=== PATIENT | female | born 1975 | race Caucasian/White ===

== ENCOUNTER 2018-03-07 11:33 | Outpatient (REF) | payer OTHER, SELFPAY ==
[2018-03-07 21:25] LABS: HGB 13.4 g/dL (12.0-15.5); Mean Corp. HGB Concentration 33.5 g/dL (32.0-36.0); Mean Corpuscular Hemoglobin 30.4 pg (27.0-33.0); Mean Corpuscular Volume 90.7 fL (80-95); Mean Platelet Volume 10.3 fL (8.0-11.0); Platelet Count 327 x1000/uL (130-400); RBC 4.41 m/cumm (4.00-5.20); RBC Distribution Width 12.6 % (11.7-14.6); White Blood Cell Count 4.52 k/cumm (4.4-10.8)
[2018-03-07 21:45] LABS: Cholesterol 292 mg/dL (50-200); HDL Cholesterol 49 mg/dL (40-60); LDL CHOLESTEROL 218 mg/dL (<100); TSH 3.51 uIU/mL (0.358-3.74); Triglyceride 131 mg/dL (30-150)
[2018-03-07 22:03] LABS: Hemoglobin A1C 5.4 % (4.5-6.2)
== END 2018-03-07 11:53 ==
LOC: NCHCN 11:33
PROVIDERS: PCP Nurse Practitioner Family; Visit Provider Nurse Practitioner Family
DX: O16.9 Unspecified maternal hypertension, unspecified trimester (principal); E03.9 Hypothyroidism, unspecified; E78.5 Hyperlipidemia, unspecified; R53.83 Other fatigue; Z13.1 Encounter for screening for diabetes mellitus
CPT/HCPCS: 80061; 83721; 85027; 83036; 84443

== ENCOUNTER 2019-03-05 13:05 | Outpatient (REF) | payer OTHER, SELFPAY ==
[2019-03-05 21:10] LABS: HCT 38.2 % (36.0-46.0); HGB 12.7 g/dL (12.0-15.5); Mean Corp. HGB Concentration 33.2 g/dL (32.0-36.0); Mean Corpuscular Hemoglobin 29.8 pg (27.0-33.0); Mean Corpuscular Volume 89.7 fL (80-95); Mean Platelet Volume 10.2 fL (8.0-11.0); Platelet Count 350 x1000/uL (130-400); RBC 4.26 m/cumm (4.00-5.20); RBC Distribution Width 12.5 % (11.7-14.6); White Blood Cell Count 7.42 k/cumm (4.4-10.8)
[2019-03-05 21:52] LABS: ALT 23 U/L (14-59); AST 15 U/L (15-37); Alkaline Phosphatase 54 U/L (46-116); Anion Gap 10.3 mmol/L (3-11); BUN 11 mg/dL (7-18); Bilirubin, Total 0.4 mg/dL (0.2-1.0); CO2 25.7 mmol/L (21.0-32.0); CREATININE 0.75 mg/dL (0.55-1.02); Calcium 8.5 mg/dL (8.5-10.1); Calculated LDL 194 mg/dL; Chloride 103 mmol/L (98-107); Cholesterol 257 mg/dL (50-200); Glucose 82 mg/dL (70-100); HDL Cholesterol 47 mg/dL (40-60); Potassium 3.9 mmol/L (3.5-5.1); Sodium 139 mmol/L (136-145); TSH 3.03 uIU/mL (0.36-3.74); Triglyceride 82 mg/dL (30-150); Vitamin B12 290 pg/mL (193-986)
== END 2019-03-05 13:25 ==
LOC: NCHCN 13:05
PROVIDERS: PCP Nurse Practitioner Family; Visit Provider Nurse Practitioner Family
DX: R53.83 Other fatigue (principal); E78.5 Hyperlipidemia, unspecified; R63.5 Abnormal weight gain; R00.2 Palpitations; I83.93 Asymptomatic varicose veins of bilateral lower extremities
CPT/HCPCS: 80053; 80061; 85027; 82607; 84443

== ENCOUNTER 2019-12-24 17:44 | Outpatient (REF) | payer OTHER, SELFPAY ==
[2019-12-24 20:53] LABS: Abs Immature Grans 0.02 10^3/uL (0.0-0.06); Absolute Basophil Count 0.05 10^3/uL (0.0-0.2); Absolute Eosinophil Count 0.17 10^3/uL (0.0-0.7); Absolute Lymphocyte Count 1.77 10^3/uL (1.2-3.4); Absolute Monocyte Count 0.35 10^3/uL (0.1-0.8); Absolute Neutrophil Count 3.49 10^3/uL (1.2-6.7); Basophils % 0.9; Eosinophils % 2.9; Immature Grans % 0.3; Lymphocytes % 30.3; MCH 30.7 pg (27.0-33.0); MCHC 33.3 % (32.0-36.0); MCV 92.1 fL (80-95); MPV 10.5 fL (8.0-11.0); Neutrophils % 59.6; Nucleated RBC 0 %; Platelet Count 316 10^3/uL (130-400); RBC 4.56 10^6/uL (3.93-5.22); RDW-SD 40.3 fL; WBC 5.85 10^3/uL (4.4-10.8)
[2019-12-24 21:32] LABS: ALT 30 U/L (14-59); AST 26 U/L (15-37); Alkaline Phosphatase 59 U/L (46-116); Anion Gap 12.1 mmol/L (3-11); BUN 12 mg/dL (7-18); Bilirubin, Total 0.4 mg/dL (0.2-1.0); CO2 23.9 mmol/L (21.0-32.0); Calcium 8.9 mg/dL (8.5-10.1); Calculated LDL 174 mg/dL (<100); Chloride 104 mmol/L (98-107); Cholesterol 239 mg/dL (<200); Glucose 88 mg/dL (74-106); HDL Cholesterol 51 mg/dL (40-60); Potassium 4.2 mmol/L (3.5-5.1); Sodium 140 mmol/L (136-145); TSH 2.15 uIU/mL (0.36-3.74); Total Protein 7.2 g/dL (6.4-8.2); Triglyceride 74 mg/dL (<150)
== END 2019-12-24 18:04 ==
LOC: NCHCN 17:44
PROVIDERS: PCP Nurse Practitioner Family; Visit Provider Internal Medicine
DX: R63.5 Abnormal weight gain (principal); E78.5 Hyperlipidemia, unspecified; L29.9 Pruritus, unspecified
CPT/HCPCS: 80053; 80061; 84443; 85025

== ENCOUNTER 2020-02-25 16:51 | Outpatient (REF) | payer OTHER, SELFPAY ==
[2020-02-29 03:47] LABS: Patient Race White; SARS-CoV-2 RNA Undetected (Undetected); SARS-CoV-2 Specimen Source Nasal
== END 2020-02-25 17:11 ==
LOC: NCHCN 16:51
PROVIDERS: PCP Nurse Practitioner Family; Visit Provider Registered Nurse
DX: R05 Cough (principal)
CPT/HCPCS: U0003

== ENCOUNTER 2020-03-22 22:10 | Outpatient (REF) | payer OTHER, SELFPAY ==
[2020-03-26 01:03] LABS: SARS-CoV-2 RNA Undetected (Undetected); SARS-CoV-2 Specimen Source Nasal
== END 2020-03-22 22:30 ==
LOC: NCHCN 22:10
PROVIDERS: PCP Nurse Practitioner Family; Visit Provider Nurse Practitioner Family
DX: R05 Cough (principal)
CPT/HCPCS: U0003

== ENCOUNTER 2020-05-11 23:09 | Outpatient (REF) | payer OTHER, SELFPAY ==
[2020-05-11 22:06] LABS: Abs Immature Grans 0.01 10^3/uL (0.0-0.06); Absolute Basophil Count 0.04 10^3/uL (0.0-0.2); Absolute Eosinophil Count 0.09 10^3/uL (0.0-0.7); Absolute Lymphocyte Count 2.07 10^3/uL (1.2-3.4); Absolute Monocyte Count 0.39 10^3/uL (0.1-0.8); Basophils % 0.7; Eosinophils % 1.5; HCT 38.1 % (36.0-46.0); HGB 12.8 g/dL (11.2-15.7); Immature Grans % 0.2; Lymphocytes % 35.1; MCHC 33.6 % (32.0-36.0); MCV 92.3 fL (80-95); MPV 10.2 fL (8.0-11.0); Monocytes % 6.6; Neutrophils % 55.9; Nucleated RBC 0 %; Platelet Count 294 10^3/uL (130-400); RBC 4.13 10^6/uL (3.93-5.22); RDW 11.8 % (11.7-14.6)
[2020-05-11 22:39] LABS: ALT 29 U/L (14-59); AST 16 U/L (15-37); Albumin 4.1 g/dL (3.4-5.0); Alkaline Phosphatase 55 U/L (46-116); Anion Gap 8.4 mmol/L (3-11); BUN 12 mg/dL (7-18); Bilirubin, Total 0.3 mg/dL (0.2-1.0); CO2 27.6 mmol/L (21.0-32.0); CREATININE 0.83 mg/dL (0.55-1.02); Calcium 8.6 mg/dL (8.5-10.1); Chloride 102 mmol/L (98-107); Glucose 86 mg/dL (74-106); Potassium 4.5 mmol/L (3.5-5.1); Sodium 138 mmol/L (136-145); Total Protein 6.9 g/dL (6.4-8.2)
[2020-05-12 04:57] LABS: Vitamin D 25 Total 44.3 ng/ml (30-100)
== END 2020-05-11 23:29 ==
LOC: NCHCN 23:09
PROVIDERS: PCP Nurse Practitioner Family; Visit Provider Nurse Practitioner Community Health
DX: R10.11 Right upper quadrant pain (principal); R19.7 Diarrhea, unspecified; E67.8 Other specified hyperalimentation
CPT/HCPCS: 80053; 82306; 84443; 85025

== ENCOUNTER 2022-09-19 19:00 | Outpatient (REF) | payer OTHER, SELFPAY ==
[2022-09-19 21:49] LABS: HCT 35.4 % (36.0-46.0); HGB 12.1 g/dL (11.2-15.7); MCH 30.2 pg (27.0-33.0); MCHC 34.2 % (32.0-36.0); MCV 88 fL (80-95); MPV 10.1 fL (8.0-11.0); Platelet Count 329 10^3/uL (130-400); RBC 4.01 10^6/uL (3.93-5.22); RDW 11.9 % (11.7-14.6); RDW-SD 38.8 fL; WBC 5.85 10^3/uL (4.4-10.8)
[2022-09-19 22:24] LABS: Anion Gap 9.5 mmol/L (3-11); BUN 11 mg/dL (7-18); CO2 26.5 mmol/L (21.0-32.0); CREATININE 0.7 mg/dL (0.55-1.02); Calcium 8.9 mg/dL (8.5-10.1); Calculated LDL 108 mg/dL (<100); Chloride 106 mmol/L (98-107); Cholesterol 172 mg/dL (<200); Estimated GFR 107.95 (mL/min/1.73m2); Ferritin 11 ng/mL (8-252); Glucose 98 mg/dL (74-106); HDL Cholesterol 52 mg/dL (40-60); Potassium 3.8 mmol/L (3.5-5.1); Sodium 142 mmol/L (136-145); TSH (W/Ref FT4) 4.02 uIU/mL (0.36-3.74); Triglyceride 62 mg/dL (<150)
[2022-09-19 22:54] LABS: FREE T4 0.89 ng/dL (0.76-1.46)
== END 2022-09-19 19:01 | disposition home or self-care (01) ==
LOC: NCHCN 19:00
PROVIDERS: PCP Nurse Practitioner Family; Visit Provider Nurse Practitioner Family
DX: E78.5 Hyperlipidemia, unspecified (principal); N92.0 Excessive and frequent menstruation with regular cycle; E66.9 Obesity, unspecified; Z86.39 Personal history of other endocrine, nutritional and metabolic disease; G47.62 Sleep related leg cramps
CPT/HCPCS: 80048; 80061; 85027; 82728; 84439; 84443

== ENCOUNTER 2023-05-17 15:54 | Outpatient (REF) | payer OTHER, SELFPAY ==
[2023-05-17 21:21] LABS: Abs Immature Grans 0.02 10^3/uL (0.0-0.06); Absolute Basophil Count 0.06 10^3/uL (0.0-0.2); Absolute Lymphocyte Count 1.96 10^3/uL (1.2-3.4); Absolute Monocyte Count 0.29 10^3/uL (0.1-0.8); Absolute Neutrophil Count 3.03 10^3/uL (1.2-6.7); Basophils % 1.1; Eosinophils % 1.8; HCT 38.1 % (36.0-46.0); HGB 12.7 g/dL (11.2-15.7); Immature Grans % 0.4; Lymphocytes % 35.9; MCH 30.4 pg (27.0-33.0); MCHC 33.3 % (32.0-36.0); MCV 91 fL (80-95); Monocytes % 5.3; Neutrophils % 55.5; RBC 4.18 10^6/uL (3.93-5.22); RDW 12.1 % (11.7-14.6); RDW-SD 40.2 fL; WBC 5.46 10^3/uL (4.4-10.8)
[2023-05-17 21:32] LABS: Diff Comment PLT Morph Reviewed; Iron 111 ug/dL (50-170); RBC Morphology Normal; Total Iron Binding Capacity 332 ug/dL (250-450); Transferrin Sat 33 % (15-50)
[2023-05-17 21:45] LABS: Anion Gap 8.9 mmol/L (3-11); BUN 8 mg/dL (7-18); CO2 25.1 mmol/L (21.0-32.0); CREATININE 0.8 mg/dL (0.55-1.02); Calcium 8.8 mg/dL (8.5-10.1); Chloride 105 mmol/L (98-107); Ferritin 16 ng/mL (8-252); Glucose 108 mg/dL (74-106); Potassium 3.7 mmol/L (3.5-5.1); Sodium 139 mmol/L (136-145)
[2023-05-20 09:58] LABS: Thyroperoxidase Antibody <28 U/mL (<=60)
[2023-05-20 10:18] LABS: Thyroglobulin Antibody >500 U/mL (<=60)
== END 2023-05-17 15:55 | disposition home or self-care (01) ==
LOC: NCHCN 15:54
PROVIDERS: PCP Nurse Practitioner Family; Visit Provider Family Medicine
DX: E02 Subclinical iodine-deficiency hypothyroidism (principal); N92.0 Excessive and frequent menstruation with regular cycle
CPT/HCPCS: 80048; 82728; 83540; 83550; 85025; 86376; 86800

== ENCOUNTER 2023-09-12 16:19 | Outpatient (REF) | payer OTHER, SELFPAY ==
[2023-09-12 21:18] LABS: HCT 39.6 % (36.0-46.0); MCHC 35.4 % (32.0-36.0); MCV 90 fL (80-95); MPV 9.7 fL (8.0-11.0); Platelet Count 364 10^3/uL (130-400); RBC 4.38 10^6/uL (3.93-5.22); RDW 11.8 % (11.7-14.6); RDW-SD 38.6 fL; WBC 4.81 10^3/uL (4.4-10.8)
[2023-09-12 21:36] LABS: Iron 77 ug/dL (50-170); Total Iron Binding Capacity 349 ug/dL (250-450); Transferrin Sat 22 % (15-50)
[2023-09-12 21:49] LABS: ALT 47 U/L (14-59); AST 25 U/L (15-37); Albumin 4.2 g/dL (3.4-5.0); Alkaline Phosphatase 66 U/L (46-116); Anion Gap 10.7 mmol/L (3-11); BUN 7 mg/dL (7-18); Bilirubin, Total 0.4 mg/dL (0.2-1.0); CO2 25.3 mmol/L (21.0-32.0); CREATININE 0.9 mg/dL (0.55-1.02); Calcium 9.1 mg/dL (8.5-10.1); Calculated LDL 124 mg/dL (<100); Chloride 106 mmol/L (98-107); Cholesterol 213 mg/dL (<200); Estimated GFR 79.35 (mL/min/1.73m2); Ferritin 15 ng/mL (8-252); Glucose 93 mg/dL (74-106); HDL Cholesterol 57 mg/dL (40-60); Potassium 3.9 mmol/L (3.5-5.1); Sodium 142 mmol/L (136-145); Total Protein 7.4 g/dL (6.4-8.2); Triglyceride 161 mg/dL (<150)
[2023-09-12 21:52] LABS: Hemoglobin A1C 5.4 % (<5.7)
== END 2023-09-12 16:20 | disposition home or self-care (01) ==
LOC: NCHCN 16:19
PROVIDERS: PCP Nurse Practitioner Family; Visit Provider Nurse Practitioner Family
DX: R53.83 Other fatigue (principal); E03.9 Hypothyroidism, unspecified; E66.9 Obesity, unspecified; N92.0 Excessive and frequent menstruation with regular cycle; E78.5 Hyperlipidemia, unspecified
CPT/HCPCS: 80053; 80061; 85027; 82728; 83036; 83540; 83550; 84443

== ENCOUNTER 2024-11-07 17:09 | Emergency (ER) | payer MEDICAID, SELFPAY ==
[2024-11-07 17:22] VITALS: BP 142/76; PULSE 93; RESP 16; TEMP 36.6; O2SAT 98
--- NOTE | 2024-11-07 18:36 | DI.RAD_ITS ---
Exam(s) XR KNEE RT 3V AP,LAT,NOHEMY EXAM: XR KNEE RT 3V AP,LAT,NOHEMY CLINICAL HISTORY: knee pain. TECHNIQUE: 2D digital imaging was performed. COMPARISON: No exams were available for comparison FINDINGS: 3 views No evidence of acute fracture nor obvious joint effusion. Bone density normal. No osseous lesions. There is minimal degenerative change. No radiopaque foreign bodies. IMPRESSION: No acute osseous findings in the knee and no joint effusion evident. DATA REPOSITORY: RADIATION DOSE DELIVERED:
[2024-11-07 18:53] LABS: D-Dimer 207 ng/mlFEU (<500)
--- NOTE | 2024-11-07 19:00 | W.ED.GENAD ---
Discharge Plan Disposition Patient Disposition: Home Condition: Stable Discharge Details Clinical Impression: Right knee pain Primary Care Provider: Emely Ojeda ED Provider: Jet Ramos Home Meds and New Rx's Prescriptions: Continued levothyroxine [Levo-T] 100 mcg tablet 100 mcg PO DAILY atorvastatin [Lipitor] 40 mg tablet 40 mg PO DAILY Discharge Instructions Instructions: Iliotibial band syndrome, Fall's (popliteal) cyst Additional Instructions: You were seen in the emergency department for your right knee pain, it is possible you have a Fall's cyst or iliotibial band syndrome, your D-dimer is negative indicating no blood clot, please take Tylenol and ibuprofen, perform stretching exercises, apply topical Voltaren to the area of pain for 2-3 times per day, seek a referral to orthopedics should your pain persist, please return to the emergency department for any emergent concerns including unilateral leg swelling with skin changes, medial thigh or calf pain. Referrals: Emely Ojeda [Primary Care Provider, Medicine] HPI General Date/Time Provider Initiated Documentation: 11/07/24 17:29. HPI Narrative: 48 year-old female presents to ED today by POV/ambulating with a chief complaint of R knee pain, in popliteal fossa, and some IT band pain- questions swelling and possible clot with onset over the past day. Quality described as soreness, aching, no radiation to unilateral leg swelling, endorses chronic varicosities since her last , denies calf pain, denies medial thigh pain. Severity is described as moderate. Palliating factors include nothing specific. Provoking factors include nothing specific. Patient not anticoagulated. Related Data Home Medications ?Medication ?Instructions ?Recorded ?Confirmed atorvastatin 40 mg tablet (Lipitor) 40 mg PO DAILY 11/07/24 11/07/24 levothyroxine 100 mcg tablet 100 mcg PO DAILY 11/07/24 11/07/24 (Levo-T) Allergies Allergy/AdvReac Type Severity Reaction Status Date / Time No Known Allergies Allergy Unverified 11/07/24 17:26 General Stated Complaint: Vascular DIGNA: 3 Review of Systems All systems reviewed & are unremarkable except as noted in HPI and below Exam Narrative Exam Narrative: GENERAL APPEARANCE: Well-nourished, non-toxic, awake and alert, atraumatic, no acute distress. SKIN: Warm, pink, dry, intact, without rashes/lesions/ulcerations. HEAD: Normocephalic, atraumatic, normal hair distribution for gender/age. EYES: Normal conjunctiva, no exudates on lids/lashes. ENT: Nares patent, no circumoral cyanosis, no facial swelling NECK: Supple, trachea midline, painless cervical ROM. LUNGS/CHEST: Non-labored respirations, normal A/P diameter, symmetrical expansion, no chest wall deformity HEART (CV/PV): No peripheral edema, no JVD. ABDOMEN: Soft, non-distended, no guarding. MSK: Normal ROM, no swelling/deformity to bilateral UEs or LEs, moving all extremities without weakness, no cyanosis, spine midline without tenderness, normal curvature, R knee popliteal fossa tenderness, no unilateral leg swelling, some superficial telangectasias to R calf, no medial thigh tenderness NEURO: Mental Status AAOx4 - alert to person, place, time, events No facial droop, no forehead involvement. Motor: No focal weakness - strength 5/5 in bilateral UEs and LEs, proximal and distal, symmetric. Sensory: sensation intact to light touch globally. Gait normal: patient ambulated without ataxia into ED room. PSYCH: euthymic, cooperative, pleasant, appropriate speech Course Vital Signs Vital signs: Vital Signs Temperature 36.6 C 11/07/24 17:22 Pulse 93 H 11/07/24 17:22 Respiratory Rate 16 11/07/24 17:22 Blood Pressure 142/76 H 11/07/24 17:22 Pulse Oximetry 98 11/07/24 17:22 Temperature 36.6 C 11/07/24 17:22 Pulse 93 H 11/07/24 17:22 Respiratory Rate 16 11/07/24 17:22 Respiratory Effort Normal, Non-Labored 11/07/24 18:08 Respiratory Depth Normal 11/07/24 18:08 Respiratory Pattern Normal 11/07/24 18:08 Blood Pressure 142/76 H 11/07/24 17:22 Pulse Oximetry 98 11/07/24 17:22 Pain Level 7 11/07/24 17:22 Lab/Test Results Lab/Test Results: Laboratory Tests Range/Units 11/07/24 18:05 D-Dimer (<500) ng/mlFEU 207 Medical Decision Making This dictation utilizes [id number] dictation software and may contain unedited grammatical errors. 48 year-old female presents to ED today by POV/ambulating with a chief complaint of R knee pain, in popliteal fossa, and some IT band pain- questions swelling and possible clot with onset over the past day. Quality described as soreness, aching, no radiation to unilateral leg swelling, endorses chronic varicosities since her last , denies calf pain, denies medial thigh pain. Severity is described as moderate. Palliating factors include nothing specific. Provoking factors include nothing specific. Patients' medical history: hypothyroidism, otherwise healthy. Family and social history: Noncontributory. Pertinent exam findings / vital signs include tenderness at popliteal fossa tenderness, IT band tenderness, no unilateral leg swelling, Tash's negative, no medial thigh tenderness. Differential / pathologies of concern include DVT, Fall's Cyst, IT Band syndrome. Diagnostic studies of: -XR R Knee, D-Dimer. -XR negative -D-dimer negative Interventions of: -None. ED Course/Assessment/Plan: 48-year-old female presents with pain behind her knee as well as some pain in the lateral thigh likely has some kind of Fall's cyst or IT band syndrome, D-dimer negative indicating no clotting pathology and Homans was negative on exam, she has some chronic very mild telangiectasias and varicosities of the superficial nature without nodular swellings of her right lower extremity, her knee is stable without any signs of trauma or effusion and she has no medial thigh tenderness, I counseled her to follow-up with orthopedics should her pain persist but to try stretches and take Tylenol and ibuprofen. Findings not consistent with DVT, neurovascular compromise, trauma. Disposition of right knee pain. Patient verbalized understanding of the plan and return to ED criteria and engaged in shared decision making. Medical Records Medical records reviewed: Yes I reviewed the patient's medical records. Imaging Data Radiologic Study: Attestation: I personally reviewed and interpreted this imaging study as follows: Imaging: X-Ray Radiologist's impression: EXAM: XR KNEE RT 3V AP,LAT,NOHEMY CLINICAL HISTORY: knee pain. TECHNIQUE: 2D digital imaging was performed. COMPARISON: No exams were available for comparison FINDINGS: 3 views No evidence of acute fracture nor obvious joint effusion. Bone density normal. No osseous lesions. There is minimal degenerative change. No radiopaque foreign bodies. IMPRESSION: No acute osseous findings in the knee and no joint effusion evident. Lab Data Lab results reviewed: Yes I reviewed the patient's lab results. Labs: Laboratory Tests Range/Units 11/07/24 18:05 D-Dimer (<500) ng/mlFEU 207 PFSH All Active Problems (Updated 11/07/24 @ 19:02 by JULIO Alvarez) Right knee pain (Acute) Social History Smoking/Tobacco Use Status: Former Tobacco Use Smoking risk assessment performed?: Yes Alcohol Intake: current Alcohol Intake frequency: a few times a month Substance use type: does not use PAWSS Have you Been Recently Intoxicated or Drunk Within the Last 30 days?: No Have you Ever Experienced Previous Episodes of Alcohol Withdrawal?: No Have you ever Experienced Withdrawal Seizures?: No Have you ever Experienced Delirium Tremens(DT)s?: No Have you ever undergone Alcohol Rehabilitation Treatment (i.e, inpt ot outpatient treatment programs)?: No Have you ever Experienced Blackouts?: No Have you ever Combined Alcohol with other Downers within the last 90 days?: No Have you ever Combined Alcohol with any other Substance of Abuse during the last 90 days?: No Positive Blood Alcohol level on Presentation? [PCS.BAL]: No Evidence of Increased Autonomic Activity (i.e. HR>120, tremor, sweating, agitation, nausea)?: No Result: 0
[2024-11-07 19:11] VITALS: BP 140/80; PULSE 93; RESP 16; TEMP 36.6; O2SAT 98
== END 2024-11-07 19:12 | disposition home or self-care (01) ==
LOC: ER 21:02
PROVIDERS: Emergency Provider Physician Assistant; PCP Nurse Practitioner Family
DX: M25.561 Pain in right knee (principal)
CPT/HCPCS: 99283 ×2; 73562; 85379